=== PATIENT | female | born 1980 | race African-American/Black ===

== ENCOUNTER 2025-03-31 21:20 | Emergency (ER) | payer OTHER ==
[~2025-03-31] VITALS: Ht 167.6 cm; Wt 100.0 kg
[2025-03-31 21:33] VITALS: TEMP 37.2; O2SAT 100
[2025-04-01] MEDS ORDERED: ACET-2708 MT (01:22)
[2025-04-01 01:39] VITALS: BP 146/88; PULSE 74; RESP 12; O2SAT 100
== END 2025-04-01 01:43 | disposition home or self-care (01) ==
LOC: ER 21:20
DX: M25.512 Pain in left shoulder (principal); R07.89 Other chest pain; M25.552 Pain in left hip
CPT/HCPCS: 71045; 73030; 73502; 93005; 99284